=== PATIENT | female | born 1990 | race Hispanic/Latino ===

== ENCOUNTER 2017-06-27 03:34 | Inpatient (IN) | payer MEDICAID, OTHER, SELFPAY ==
[2017-06-27 04:06] VITALS: BMI 34.1
[2017-06-27] MEDS ORDERED: Ondansetron HCl/PF 4 MG/2 ML Vial IVP PRN ×2 (04:50→11:48)
[2017-06-27] MEDS ORDERED: HYDROcodone/Acetaminophen 5/325 mg Tablet PO PRN ×2 (04:50)
[2017-06-27] MEDS ORDERED: Ibuprofen 800 MG TAB PO PRN (04:50)
[2017-06-27] MEDS ORDERED: Lidocaine 1% (PF) 30 ML VIAL SC PRN (04:50)
[2017-06-27] MEDS: Lactated Ringer's 1,000 ML IV PRN ×2 (05:10→11:14)
[2017-06-27 05:23] LABS: Hematocrit 36.5 % (36.0-47.0); Mean Platelet Volume 6.9 fL (7.4-10.4); Red Blood Cell (RBC) Count 4.35 mill/uL (4.20-5.40); White Blood Cell (WBC) Count 10.7 thou/uL (4.8-10.8)
--- NOTE | 2017-06-27 08:25 | PDOC.LDPN ---
Labor & Delivery Progress Note - Subjective Subjective: painful contractions - Objective Vital signs reviewed and normal: yes General: breathing through contractions Uterine fundus: non tender Effacement: 90% Station: 0 FHT: category 1 [place] contractions every: 8 minutes AROM: clear fluid (@0820 hrs) - Assessment (1) Normal labor and delivery Code(s): O80 - ENCOUNTER FOR FULL-TERM UNCOMPLICATED DELIVERY Current Visit: Yes Status: Acute Plan: continue plan of care -: -AROM membranes ruptured, clear fluid discharge @ 0820 HRS. contractions q2min- q8min, cervical check 7, 90%, 0 station -cat 1 strip baseline 140 mod variability, no decels, + accels -vitals reviewed and WNL -mother denies epidural at this time -cervical checks q2h -pain adequately controlled at this time -GBS negative -Blood type O+
[2017-06-27] MEDS ORDERED: Fentanyl 4 mcg/Marc 0.1% Cadd 100 ML ONE (10:42)
--- NOTE | 2017-06-27 10:45 | PDOC.LDPN ---
Labor & Delivery Progress Note - Subjective Subjective: painful contractions, no concerns - Objective Vital signs reviewed and normal: yes General: breathing through contractions Uterine fundus: palpable contractions Dilation: 7 Effacement: 90% Station: 0 FHT: category 1, variability present [place] contractions every: 4-7 minutes - Assessment (1) Normal labor and delivery Code(s): O80 - ENCOUNTER FOR FULL-TERM UNCOMPLICATED DELIVERY Current Visit: Yes Status: Acute Plan: continue plan of care -: -latest cervical check 7cm, 90%, 0 station per nurse -pt having stronger more painful contractions, considering epidural -no change since last check, will augment with pit pending epidural decision -continue peanut ball as tolerated -Cat 1 strip with baseline 140 moderate variability, accels, no decels -continue cervical check q2h -continue monitoring pain scale, assess for epidural
[2017-06-27] MEDS ORDERED: Eucerin (Mineral Oil/Petrolatum,White) 30 gm Jar TOP PRN (11:48)
[2017-06-27] MEDS ORDERED: Lactated Ringer's 500 ML IV PRN (11:48)
[2017-06-27] MEDS ORDERED: Promethazine HCl 25 MG/ML VIAL IM PRN (11:48)
[2017-06-27] MEDS ORDERED: diphenhydrAMINE HCl 50 MG/ML 1 ML VIAL IVP PRN (11:48)
[2017-06-27] MEDS ORDERED: Acetaminophen 325 MG TAB PO PRN (11:48)
[2017-06-27] MEDS ORDERED: ePHEDrine/0.9% NaCl/PF SYRINGE 50 mg/10 ml SLOW IVP PRN (11:48)
[2017-06-27] MEDS ORDERED: Naloxone HCl 0.4 mg/ml Vial IVP PRN ×2 (11:48)
[2017-06-27] MEDS: LR / Pitocin 40 units/1000 ml 1,000 ML IV PRN ×2 (11:50→12:54)
[2017-06-27] MEDS ORDERED: Communication Order-Pharmacy FS SCH (12:00)
[2017-06-27] MEDS ORDERED: Fentanyl 4mcg/Marcaine 0.1% Cassette 100 ML EPIDURAL SCH (12:00)
--- NOTE | 2017-06-27 13:08 | PDOC.OPDEL ---
OB Operative/Delivery Note Delivery Dr/Surgeon: PGY1:Donny Lopez DO; Attending: Sharla Porras MD Assist: Cameron Silverman MD Pre-Delivery Diagnosis: active labor Procedure/Post Delivery Dx: spontaneous vaginal delivery Anesthesia: epidural - Additional Findings/Plan Placenta delivered: spontaneous Repaired Obstetrical Laceration: 1st degree Estimated blood loss: 250mL Compilations/Other Findings: 26 yo G3 now P3 GBS negative mother presented at 40 weeks by lmp and 1st trimester US delivered a TAGA F via @ 1149. APGARS of 9&9 and an EBL of 250cc. Cord blood was obtained. Placenta delivered via moreno mechanism revealed 3 vessel cord and intact placenta. First degree perineal laceration was repaired with 2-0 vicryl suture with adequate hemostasis. Epidural anesthesia was adequate. Post delivery plan: routine recovery <Donny Lopez - Last Filed: 06/27/17 13:06> Attending Addendum - Attending Addendum I was present for the uncomplicated delivery of a vigorous female infant with Dr. Lopez and Dr. Silverman. <Sharla Porras - Last Filed: 06/27/17 13:24>
[2017-06-27] MEDS ORDERED: Bisacodyl 10 MG SUPP PR PRN (14:14)
[2017-06-27] MEDS ORDERED: Lanolin Ointment 7 GM TUBE TOP PRN (14:14)
[2017-06-27] MEDS ORDERED: Varicella virus, LIVE 0.5 ML VIAL SC ONE (14:14)
[2017-06-27] MEDS ORDERED: Adacel (T-DAP) 0.5 ML VIAL IM ONE (14:14)
[2017-06-27] MEDS: Ibuprofen 800 MG TAB PO SCH ×2 (14:47→21:39)
[2017-06-27] MEDS: Docusate (Surfak) 240 MG CAP PO SCH (21:39)
[2017-06-28] MEDS: Ibuprofen 800 MG TAB PO SCH ×3 (05:34→21:21)
[2017-06-28] MEDS: Ferrous Sulfate 325 MG TAB PO SCH (09:22)
[2017-06-28] MEDS: Prenatal Vitamin 1 TAB PO SCH (09:22)
[2017-06-28] MEDS: Docusate (Surfak) 240 MG CAP PO SCH ×2 (09:23→21:21)
--- NOTE | 2017-06-28 12:42 | PDOC.PP ---
Post Progress Note Post Day #: 1 PO intake tolerated: yes Flatus: yes Ambulation: yes Vital Signs (12 hours) Temp Pulse Resp BP 06/28/17 08:00 98.5 F 75 18 06/28/17 05:00 98.5 F 75 18 116/54 L 06/28/17 04:00 98.4 F 72 18 Weight Weight 92.986 kg - Physical Examination General: NAD Cardiovascular: no m/r/g, RRR Respiratory: clear to ausculation bilateral Abdominal: + bowel sounds, lochia (minimal), no distention, appropriately TTP Extremities: negative homans (B) Skin: no rash Neurological: no gross focal deficits Psychiatric: normal affect Result Diagrams: 06/27/17 05:15 Additional Labs: Post Labs Blood Type O POSITIVE 06/27/17 05:15 Hep Bs Antigen Non-Reactive S/CO (NonReactive) 06/27/17 05:15 (1) (spontaneous vaginal delivery) Code(s): O80 - ENCOUNTER FOR FULL-TERM UNCOMPLICATED DELIVERY Status: Acute Comment: Uncomplicated vaginal delivery with 1st degree perineal lac repaired. Doing well, routine PP course, VSS. Would like to stay additional night as baby having some mild difficulty with feeds. Plans to breastfeed and bottle feed at home. Discussed benefits of exclusive today. Considering PP contraception - can make final decision at PP f/u appt at [facility] in 2 wks. <Cameron Silverman - Last Filed: 06/28/17 12:39> Vital Signs (12 hours) Temp Pulse Resp BP 06/28/17 19:40 98.1 F 79 18 115/71 Weight Weight 205 lb Result Diagrams: 06/27/17 05:15 Additional Labs: Post Labs Blood Type O POSITIVE 06/27/17 05:15 Hep Bs Antigen Non-Reactive S/CO (NonReactive) 06/27/17 05:15 <Fernando Whitfield - Last Filed: 06/29/17 07:35> Event Note - Event Note Event Note: Pt seen and evaluated by myself and agree with the above documentation. <Fernando Whitfield - Last Filed: 06/29/17 07:35>
[2017-06-28] MEDS: Dextrose 5%-Lactated Ringers 1,000 ML IV SCH (21:48)
[2017-06-29] MEDS: Ibuprofen 800 MG TAB PO SCH (06:18)
--- NOTE | 2017-06-29 08:05 | PDOC.PP ---
Post Progress Note Post Day #: 2 PO intake tolerated: yes Flatus: yes Ambulation: yes Weight Weight 92.986 kg - Physical Examination General: NAD Cardiovascular: no m/r/g, RRR Respiratory: clear to ausculation bilateral Abdominal: + bowel sounds, lochia (minimal), no distention, appropriately TTP Extremities: negative homans (B) Skin: no rash Neurological: no gross focal deficits Psychiatric: normal affect Result Diagrams: 06/27/17 05:15 Additional Labs: Post Labs Blood Type O POSITIVE 06/27/17 05:15 Hep Bs Antigen Non-Reactive S/CO (NonReactive) 06/27/17 05:15 (1) (spontaneous vaginal delivery) Code(s): O80 - ENCOUNTER FOR FULL-TERM UNCOMPLICATED DELIVERY Status: Acute Comment: Uncomplicated vaginal delivery with 1st degree perineal lac repaired. Doing well, routine PP course, VSS. Plans to breastfeed and bottle feed at home. Discussed benefits of exclusive during stay. PP contraception options discussed, pt still deciding - can make further decisions at PP f/u appt at [facility] in 2 wks. Plan for d/c today. <Cameron Silverman - Last Filed: 06/29/17 08:03> Weight Weight 205 lb Result Diagrams: 06/27/17 05:15 Additional Labs: Post Labs Blood Type O POSITIVE 06/27/17 05:15 Hep Bs Antigen Non-Reactive S/CO (NonReactive) 06/27/17 05:15 - Assessment/Plan Faculty note: Agreed with plan. Patient seen and evaluated. Cleared for discharge <Matt Allred - Last Filed: 06/29/17 08:18>
[2017-06-29 08:52] VITALS: BP 121/59; TEMP 98.7
[2017-06-29] MEDS: Prenatal Vitamin 1 TAB PO SCH (09:28)
[2017-06-29] MEDS: Ferrous Sulfate 325 MG TAB PO SCH (09:28)
[2017-06-29] MEDS: Docusate (Surfak) 240 MG CAP PO SCH (09:29)
--- NOTE | 2017-06-29 12:56 | DIS ---
DATE OF ADMISSION: 06/27/2017 DATE OF DISCHARGE: 06/29/2017 PRINCIPAL PROCEDURE: Normal vaginal delivery. HOSPITAL COURSE: In brief, this patient was admitted on 06/27/2017, with Dr. Sharla Porras, on for faculty. She is also followed by the Clinic. For full details of the labor care, please t urn to the notes by Dr. Sharla Porras. On 06/27/2017, patient underwent a spontaneous vaginal deliv wendy with a first degree laceration noted. Blood loss was 250 mL. For full details, please turn to that note dictated by Dr. Donny Lopez as well as Dr. Sharla Porras, who gave the faculty attesta tion. I evaluated the patient on 06/29/2017, which was day #2 and found her to be clinic ally stable for discharge. She was afebrile with a temperature range of 98.1-98.5 and blood pressur es ranges from 115/53-116/54, pulse was in the 70s. Respirations were 18 and not labored. On physi humberto exam, uterus was firm and nontender. There was no evidence of excessive vaginal bleeding noted at time of discharge. As she was clinically stable without evidence of febrile morbidity or hyperte nsive changes, decision was made to discharge her home on day #2. She will have followup at the Clinic per routine.
[2017-06-29] MEDS ORDERED: Bupivacaine 0.25% HCL 30 ML VIAL ONE (14:40)
== END 2017-06-29 12:20 | disposition home or self-care (01) | DRG 775 ==
LOC: L&D/OP 03:34 → L&D 05:06 → 3SW 14:53
PROVIDERS: ADMIT Obstetrics & Gynecology; ATTEND Obstetrics & Gynecology
PROC: 10E0XZZ Delivery of Products of Conception, External Approach (ICD-10-PCS; principal; 2017-06-27)
PROC: 0HQ9XZZ Repair Perineum Skin, External Approach (ICD-10-PCS; 2017-06-27)
PROC: 10907ZC Drainage of Amniotic Fluid, Therapeutic from Products of Conception, Via Natural or Artificial Opening (ICD-10-PCS; 2017-06-27)
DX: O70.0 First degree perineal laceration during delivery (principal); Z37.0 Single live birth; Z3A.40 40 weeks gestation of pregnancy
CPT/HCPCS: 36415; 85027; 86780; 87340; 90715; 90716; J2001; S0020

== ENCOUNTER 2018-11-20 15:26 | Outpatient (CLI) | payer OTHER ==
--- NOTE | 2018-11-20 16:33 | ULT ---
OBSTETRICAL SONOGRAM: HISTORY: Second trimester gestation. evaluation. FINDINGS: Multiple transabdominal sonographic views of the gravid uterus show a single intrauterine gestation, in a cephalic presentation. Grade 1 placenta is anterior. The cervix is closed and partially obscur ed by cranium. Amniotic fluid is within normal limits. No gross intracranial abnormalities. spine and kidneys are intact as visualized. Four-chambered heart shows motion at 155 beats per minute. Three-vessel cord shows a normal insertion. Measurements are as follows: BIPARIETAL DIAMETER: 23 weeks 3 days. HEAD CIRCUMFERENCE: 23 weeks 2 days. ABDOMINAL CIRCUMFERENCE: 23 weeks 2 days. FEMUR LENGTH: 23 weeks 0 days. Estimated date of delivery, based on today's sonogram, is 03/17/2019. [place] is at the 98th percent ile. IMPRESSION: Single viable intrauterine gestation with estimated gestational age based on today's sonogram of 23 w eeks 2 days, somewhat large for the submitted gestational age based on last menstrual period. POS: SYED
== END 2018-11-20 15:27 | disposition home or self-care (01) ==
LOC: BICULT 15:26
PROVIDERS: ATTEND Family Medicine
DX: Z34.82 Encounter for supervision of other normal pregnancy, second trimester (principal); Z3A.23 23 weeks gestation of pregnancy
CPT/HCPCS: 76805

== ENCOUNTER 2019-03-06 20:00 | Inpatient (IN) | payer OTHER, SELFPAY ==
[2019-03-07 13:10] LABS: Amnisure Internal Control QC ACCEPTABLE (ACCEPTABLE)
[2019-03-07 13:14] LABS: Amnisure Test RUPTURE DETECTED (No Rupture)
[2019-03-07 13:14] LABS: Hemoglobin 9.5 g/dL (12.0-16.0)
[2019-03-07 13:17] LABS: HBSAg Index 0.25 S/CO (0-0.99); Hep B Surf Ag NonReactive S/CO (NonReactive)
[2019-03-07 13:18] LABS: Syphilis Antibody Nonreactive (Nonreactive); Syphilis Antibody Index 0.19 S/CO (<1.00 Non-Reactive)
[2019-03-07] MEDS ORDERED: NS / Oxytocin 40 units/1000ml 1,000 ML ONE (13:18)
[2019-03-07] MEDS ORDERED: Promethazine HCl 25 MG/ML VIAL IM PRN (14:33)
[2019-03-07] MEDS ORDERED: diphenhydrAMINE 25 MG CAP PO PRN (14:33)
[2019-03-07] MEDS ORDERED: Ondansetron PF 4 MG/2 ML Vial IVP PRN (14:33)
[2019-03-07] MEDS ORDERED: Bisacodyl 10 MG SUPP PR PRN (14:33)
[2019-03-07] MEDS ORDERED: Milk Of Magnesia 30 ML UDCUP PO PRN (14:33)
[2019-03-07] MEDS ORDERED: Lanolin Ointment 7 GM TUBE TOP PRN (14:33)
[2019-03-07] MEDS ORDERED: Benzocaine-Menthol 82.5 ML CAN TOP PRN (14:33)
[2019-03-07] MEDS ORDERED: hydrALAZINE 20 MG/ML VIAL SLOW IVP PRN (14:33)
[2019-03-07] MEDS ORDERED: HYDROcodone/Acetaminophen 5/325 mg Tablet PO PRN ×2 (14:33)
[2019-03-07] MEDS ORDERED: NS / Oxytocin 40 units/1000ml 1,000 ML IV SCH (14:45)
[2019-03-07 15:02] VITALS: BMI 34.9
[2019-03-07] MEDS: Ferrous Sulfate 325 MG TAB PO SCH (16:28)
[2019-03-07] MEDS: Ibuprofen 800 MG TAB PO SCH (16:29)
[2019-03-08] MEDS: Ibuprofen 800 MG TAB PO SCH ×2 (00:47→09:27)
[2019-03-08] MEDS: Docusate Calcium (SURFAK) 240 MG CAP PO SCH ×2 (00:49→09:28)
[2019-03-08 06:39] LABS: Hemoglobin 8.6 g/dL (12.0-16.0); Mean Corpuscular HGB CONC 32.5 g/dL (32.0-36.0); Mean Corpuscular Hemoglobin 23.9 pg (27.0-31.0); Mean Corpuscular Volume 73.6 fL (78.0-98.0); Mean Platelet Volume 7.6 fL (7.4-10.4); Platelet Count 306 thou/uL (130-400); RBC Distribution Width 15.4 % (11.5-14.5); Red Blood Cell (RBC) Count 3.58 mill/uL (4.20-5.40)
[2019-03-08 08:27] VITALS: TEMP 98.6
[2019-03-08] MEDS ORDERED: Prenatal Vitamin 1 TAB PO SCH (09:00)
[2019-03-08] MEDS: Ferrous Sulfate 325 MG TAB PO SCH (09:28)
[2019-03-08 12:10] VITALS: BP 106/59
== END 2019-03-08 18:45 | disposition home or self-care (01) | DRG 807 ==
LOC: L&D/OP 20:00 → L&D 21:00 → 3SW 03-07 16:19
PROVIDERS: ADMIT Family Medicine; ATTEND Family Medicine
PROC: 10E0XZZ Delivery of Products of Conception, External Approach (ICD-10-PCS; principal; 2019-03-07)
PROC: 0HQ9XZZ Repair Perineum Skin, External Approach (ICD-10-PCS; 2019-03-07)
DX: O69.81X0 Labor and delivery complicated by cord around neck, without compression, not applicable or unspecified (principal); Z37.0 Single live birth; O70.0 First degree perineal laceration during delivery; Z3A.37 37 weeks gestation of pregnancy
CPT/HCPCS: 36415; 51702; 84112; 85014; 85018; 85027; 86780; 86900; 86901; 87340; 99285

== ENCOUNTER 2020-09-24 12:43 | Outpatient (CLI) | payer OTHER ==
--- NOTE | 2020-09-24 13:05 | ULT ---
EXAM: US Thyroid STANDARD PROVIDED CLINICAL HISTORY: Thyromegaly COMPARISON: None FINDINGS: Right thyroid lobe measures about 5.6 x 1.5 x 1.9 cm and demonstrates no focal abnormality. Left thyroid lobe measures about 5.2 x 1.5 x 1.7 cm and demonstrates no focal abnormality. IMPRESSION: No focal thyroid abnormality is evident.
== END 2020-09-24 12:44 | disposition home or self-care (01) ==
LOC: BICULT 12:43
PROVIDERS: ATTEND Family Medicine
DX: E01.0 Iodine-deficiency related diffuse (endemic) goiter (principal)
CPT/HCPCS: 76536

== ENCOUNTER 2020-09-25 20:40 | Emergency (ER) | payer MEDICAID, SELFPAY ==
[~2020-09-25 20:40] MED LIST: Iopamidol-370 76% 500 ML 1 ML ONE
[2020-09-25] MEDS ORDERED: Dexamethasone 4 MG TAB ONE (23:50)
[2020-09-25] MEDS ORDERED: Dexamethasone 10 MG/ML VIAL ONE (23:55)
[2020-09-26 00:10] LABS: #Basophils 0.1 thou/uL (0.0-0.2); #Eosinphils 0.4 thou/uL (0.0-0.7); #Lymphocytes 4.1 thou/uL (1.20-3.40); #Monocytes 0.9 thou/uL (0.11-0.59); #Neutrophils 5.8 thou/uL (1.40-6.50); %Basophils 1.1 % (0.0-1.0); %Eosinophils 3.8 % (0.0-10.0); %Monocytes 8.1 % (0.0-10.0); Mean Corpuscular HGB CONC 33.8 g/dL (32.0-36.0); Mean Corpuscular Hemoglobin 27.5 pg (27.0-31.0); Mean Corpuscular Volume 81.5 fL (78.0-98.0); Mean Platelet Volume 6.6 fL (7.4-10.4); Platelet Count 348 thou/uL (130-400); RBC Distribution Width 12.7 % (11.5-14.5); Red Blood Cell (RBC) Count 4.73 mill/uL (4.20-5.40); White Blood Cell (WBC) Count 11.3 thou/uL (4.8-10.8)
[2020-09-26] MEDS ORDERED: Ketorolac Tromethamine 30 MG/ML VIAL ONE (00:22)
[2020-09-26 00:39] LABS: BHCG - Serum Negative (NEGATIVE); Pregs Control Background? CLEAR/WHITE (CLR/WHITE); Pregs Control Bar Appear? YES (CONTROL BAR)
--- NOTE | 2020-09-26 08:24 | RAD ---
PORTABLE CHEST: Date: 09/25/2020 HISTORY: Difficulty breathing. COMPARISON: 06/30/2014 study. FINDINGS: Heart size and mediastinum are within normal limits. Lungs are clear of infiltrates. No significant b kiarra findings. IMPRESSION: No active intrathoracic disease. POS: OFF
--- NOTE | 2020-09-26 08:34 | RAD ---
SOFT TISSUE VIEW OF NECK: Date: 09/25/2020 HISTORY: Difficulty breathing, feels like something stuck in throat. FINDINGS: Retropharyngeal soft tissues are normal. There appears to be some swelling to the epiglottis, somewha t difficult to visualize as opposed to adjacent soft tissue. No airway narrowing seen. IMPRESSION: 1. Suggestion of some swelling to the region of the epiglottis. I cannot exclude this a some early e piglottitis. 2. Findings that would suggest somewhat prominent adenoids. POS: OFF
--- NOTE | 2020-09-26 08:41 | CT ---
PRELIMINARY REPORT/[facility]/EMERGENCY AFTER HOURS EXAM: CT Neck with Intravenous Contrast. CLINICAL HISTORY: 29-year-old female presents emergency department for evaluation of difficulty swallowing. Patient rep orts the sensation has been present for the past week she reports that she saw her primary care doctor 3 days ago for related blood work and also she had a thyroid ultrasound but she does not have those results yet. Patient reports her symptoms started with chills, body aches and some shortness of breath. TECHNIQUE: Axial computed tomography images of the neck with intravenous contrast. Sagittal and coronal reformat ions performed. CONTRAST: With; [id number] COMPARISON: None provided. FINDINGS: PHARYNX: The nasopharynx, oropharyx, and hypopharynx are unremarkable. No pharyngeal mucosal based mass lesion s. LARYNX: The larynx is unremarkable. Normal epiglottis. RETROPHARYNGEAL SPACE: No retropharyngeal soft tissue swelling or gas. SALIVARY GLANDS: The parotid, submandibular, and sublingual glands are unremarkable. LYMPH NODES: No lymphadenopathy. THYROID: The thyroid gland is unremarkable. No nodule. BONES: No acute osseous abnormality. IMPRESSION: Unremarkable CT neck with IV contrast. No identified soft tissue mass. ELECTRONICALLY SIGNED BY: Luiz Caban MD Sep 26, 2020 2:08:59 AM [employer]LL BOOTH OPERATOR This report is intended for review by the ordering physician only, in accordance of law. If you recei ve this report in error, please call [facility] at [phone]. FINAL REPORT EXAM: CT NECK SOFT TISSUE POST CONTRAST: HISTORY:Difficulty swallowing. Sensation has been present for the past week. COMPARISON:None CORRELATION:None FINDINGS: Brain parenchyma: No pathologic enhancement of the visualized brain parenchyma. Sinuses: Adequate aeration of the visualized paranasal sinuses and mastoid air cells. Orbits: Appropriate location of the ocular lenses. Symmetric attenuation the optic nerves and ocular rectus muscles. Retrobulbar fat is preserved. Nasopharynx:Adequate aeration. No mucosal abnormality. Oral cavity:Aerodigestive tract is patent. No mucosal abnormality. Limited evaluation of the oral cav ity due to dental amalgam artifact. Midline fatty raphae of the tongue is preserved. Hypopharynx: No mucosal abnormality. Epiglottis has a normal caliber. Preepiglottic fat is preserved .. Larynx: No mucosal abnormality with regards to the supraglottic, glottic and subglottic larynx. Paraspinal muscles: Symmetric attenuation of the paraspinal muscles and symmetric attenuation of the sternocleidomastoid muscles.. Parotid and salivary glands: Symmetric attenuation of the parotid and submandibular glands Vessels: No significant stenosis. Technique limits evaluation. Thyroid gland: Unremarkable. Spine: Vertebral body height is maintained. No fracture. No significant central canal stenosis or sig nificant neural foraminal narrowing. Limited evaluation due to technique. Lymph nodes: No evidence of lymphadenopathy by size criteria Lung apices and upper mediastinum: No acute abnormality. IMPRESSION: 1. This report is in agreement with initial report by [facility]. 2. No acute abnormality in the soft tissues of the neck. No radiopaque foreign body. Transcribed Date/Time: 09/26/2020 10:43 AM
== END 2020-09-26 02:41 | disposition home or self-care (01) ==
LOC: ERS 20:40
DX: R13.10 Dysphagia, unspecified (principal)
CPT/HCPCS: 70360; 70491; 71045; 84703; 85025; 96374; 96375; J1100; J1885; J8540; Q9967

== ENCOUNTER 2021-01-20 11:40 | Emergency (ER) | payer SELFPAY ==
[2021-01-20 12:33] LABS: #Basophils 0.1 thou/uL (0.0-0.2); #Eosinphils 0.7 thou/uL (0.0-0.7); #Monocytes 0.7 thou/uL (0.11-0.59); #Neutrophils 5.5 thou/uL (1.40-6.50); %Basophils 0.6 % (0.0-1.0); %Eosinophils 6.1 % (0.0-10.0); %Lymphocytes 36.4 % (21.0-51.0); %Monocytes 6.4 % (0.0-10.0); %Neutrophils 50.5 % (42.0-75.0); Hemoglobin 12.7 g/dL (12.0-16.0); Mean Corpuscular HGB CONC 33.2 g/dL (32.0-36.0); Mean Corpuscular Hemoglobin 27.4 pg (27.0-31.0); Mean Corpuscular Volume 82.5 fL (78.0-98.0); Mean Platelet Volume 6.7 fL (7.4-10.4); Platelet Count 364 thou/uL (130-400); RBC Distribution Width 11.4 % (11.5-14.5); Red Blood Cell (RBC) Count 4.63 mill/uL (4.20-5.40); White Blood Cell (WBC) Count 10.9 thou/uL (4.8-10.8)
[2021-01-20] MEDS ORDERED: Acetaminophen 500 MG TAB ONE (12:49)
[2021-01-20] MEDS ORDERED: Metoclopramide HCl 10 MG/2 ML VIAL ONE (12:50)
[2021-01-20] MEDS ORDERED: diphenhydrAMINE 50 MG/ML VIAL ONE (12:50)
[2021-01-20 12:54] LABS: ALT (SGPT) 10 U/L (8-55); AST (SGOT) 13 U/L (5-34); Albumin 4.5 g/dL (3.5-5.0); Alkaline Phosphatase 102 U/L (40-110); Anion Gap 13 mmol/L (10-20); BUN (Urea Nitrogen) 9 mg/dL (7.0-18.7); Bilirubin, Total 0.4 mg/dL (0.2-1.2); Calc. Creatinine Clearance 0 mL/min (70-130); Calcium 9.2 mg/dL (7.8-10.44); Carbon Dioxide 24 mmol/L (22-29); Chloride 105 mmol/L (98-107); Globulin 2.9 g/dL (2.4-3.5); Glucose 90 mg/dL (70-105); Potassium 3.5 mmol/L (3.5-5.1); Protein, Total 7.4 g/dL (6.0-8.3); Sodium 138 mmol/L (136-145)
== END 2021-01-20 14:00 | disposition home or self-care (01) ==
LOC: ERS 11:40
DX: R51.9 Headache, unspecified (principal); H53.8 Other visual disturbances
CPT/HCPCS: 36415; 70450; 71045; 80053; 84484; 85025; 93005; 96365; 96375; J1200; J2765

== ENCOUNTER 2025-06-03 15:46 | Emergency (ER) | payer OTHER, SELFPAY ==
[2025-06-03] MEDS ORDERED: Ketorolac Tromethamine 30 MG (1 mL) VIAL ONE ×2 (16:39→16:40)
[2025-06-03] MEDS ORDERED: HYDROcodone/Acetaminophen 10/325 mg Tablet ONE (16:40)
[2025-06-03 16:54] LABS: Pregnancy Test - Urine (BHCG) Negative (Negative); Pregu Control Background? CLEAR/WHITE (CLR/WHITE); Pregu Control Bar Appear? YES (CONTROL BAR)
== END 2025-06-03 17:54 | disposition home or self-care (01) ==
LOC: ERS 15:46
DX: S39.012A Strain of muscle, fascia and tendon of lower back, initial encounter (principal); V89.2XXA Person injured in unspecified motor-vehicle accident, traffic, initial encounter
CPT/HCPCS: 72131; 72192; 81025; 96372; J1885